=== PATIENT | female | born 1975 | race Hispanic/Latino ===

== ENCOUNTER 2023-02-14 00:04 | Emergency (ER) | payer BC ==
[~2023-02-14] VITALS: Ht 162.6 cm; Wt 94.8 kg
[2023-02-14] MEDS ORDERED: ALBUTEROL 0.083% 2.5 MG/3 ML INH IH ONE (00:30)
[2023-02-14] MEDS ORDERED: AZIT500T2 PO (01:25)
[2023-02-14] MEDS ORDERED: PRED20TA3 PO (01:25)
[2023-02-14] MEDS ORDERED: ALBU90AE2 IH (01:25)
[2023-02-14 01:28] VITALS: BP 143/76
== END 2023-02-14 01:35 | disposition home or self-care (01) ==
LOC: EDH 00:04
DX: J20.9 Acute bronchitis, unspecified (principal); E11.9 Type 2 diabetes mellitus without complications; E78.00 Pure hypercholesterolemia, unspecified; I10 Essential (primary) hypertension; Z20.822 Contact with and (suspected) exposure to COVID-19
CPT/HCPCS: 99283; 71045; 87635; 87804 ×2; C9803